=== PATIENT | female | born 1965 | race African-American/Black ===

== ENCOUNTER 2016-05-12 11:24 | Inpatient (IN) | payer OTHER ==
[2016-05-12 11:53] VITALS: BMI 16.9
--- NOTE | 2016-05-12 13:20 | HP ---
CIWA Score - CIWA Score Nausea/Vomitin Muscle Tremors: 3 Anxiety: 3 Agitation: 3 Paroxysmal Sweats: 2 Orientation: 0-Oriented Tacttile Disturbances: 2-Mild Itch/Numbness/Burn Auditory Disturbances: 2-Mild Harshness/Frighten Visual Disturbances: 2-Mild Sensitivity Headache: 2-Mild CIWA-Ar Total Score: 22 Admission ROS [facility] - HPI Chief Complaint: i need help to stop drinking alcohol Allergies/Adverse Reactions: Allergies Allergy/AdvReac Type Severity Reaction Status Date / Time No Known Allergies Allergy Verified 05/12/16 13:18 History of Present Illness: this 51 years old female patient with alcohol dependence,withdrawal symptom, never been in detox before hypertension non compliance nicotine dependence longest period of sobriety 6 months Exam Limitations: No Limitations - Ebola screening Have you traveled outside of the country in the last 21 days: No Have you been sick,other than usual withdrawal symptoms: No - Review of Systems Constitutional: Loss of Appetite, Malaise, Night Sweats, Changes in sleep, Weakness, Unintentional Wgt. Loss EENT: reports: Nose Congestion Respiratory: reports: No Symptoms reported GI: reports: Nausea, Vomiting, Abdominal cramping : reports: No Symptoms Reported Musculoskeletal: reports: Back Pain, Joint Pain, Muscle Pain Integumentary: reports: Dryness Neuro: reports: Headache, Tremors Endocrine: reports: No Symptoms Reported Hematology: reports: No Symptoms Reported Psychiatric: reports: No Sypmtoms Reported Other Systems: Reviewed and Negative Patient History - Patient Medical History Hx Anemia: No Hx Asthma: No Hx Chronic Obstructive Pulmonary Disease (COPD): No Hx Cancer: No Hx Cardiac Disorders: No Hx Congestive Heart Failure: No Hx Hypertension: Yes (non compliance) Hx Hypercholesterolemia: No Hx Pacemaker: No HX Cerebrovascular Accident: No Hx Seizures: No Hx Dementia: No Hx Diabetes: No Hx Gastrointestinal Disorders: No Hx Liver Disease: No Hx Genitourinary Disorders: No Hx Sexually Transmitted Disorders: No Hx Renal Disease (ESRD): No Hx Thyroid Disease: No Hx Human Immunodeficiency Virus (HIV): No (last 2011 negative) Hx Hepatitis C: No Hx Depression: No Hx Suicide Attempt: No Hx Bipolar Disorder: No Hx Schizophrenia: No Other Medical History: no suicidal,no homicidal - Patient Surgical History Hx Abdominal Surgery: Yes (bleeding peptic ulcer ,partial gastrectomy,at age of [age] years old [place] ) - PPD History Previous Implant?: Yes Documented Results: Negative w/o proof Implanted On Prior R Admission?: No PPD to be Administered?: Yes - Reproductive History Patient is a Female of Child Bearing Age (11 -55 yrs old): Yes Patient : No - Smoking Cessation Smoking history: Current every day smoker Have you smoked in the past 12 months: Yes Aproximately how many cigarettes per day: 6 Cigars Per Day: 0 Hx Chewing Tobacco Use: No Initiated information on smoking cessation: Yes 'Breaking Loose' booklet given: 05/12/16 - Substance & Tx. History Hx Alcohol Use: Yes Hx Substance Use: No Substance Use Type: Alcohol - Substances Abused Alcohol Route: Oral Frequency: Daily (1pint of vodka) Amount used: 1 pint of vodka Age of first use: 16 Date of Last Use: 05/11/16 Family Disease History - Family Disease History Family Disease History: Other: Father (alcohol,), Mother (anuerysm, ) Admission Physical Exam S - Vital Signs Vital Signs: Vital Signs - 24 hr 05/12/16 11:42 Temperature 97.4 F L Pulse Rate 126 H Respiratory 20 Rate Blood Pressure 107/74 - Physical General Appearance: Yes: Moderate Distress, Tremorous, Irritable, Sweating, Anxious HEENTM: Yes: Normal ENT Inspection, Pharynx Normal, Nasal Congestion, Rhinorrhea Respiratory: Yes: Lungs Clear, Normal Breath Sounds, No Respiratory Distress Neck: Yes: Within Normal Limits, Trachea in good position Breast: Yes: Breast Exam Deferred Cardiology: Yes: Within Normal Limits, Regular Rhythm, Regular Rate, S1, S2 Abdominal: Yes: Within Normal Limits, Normal Bowel Sounds, Non Tender, Flat, Soft, Surgical Scar Genitourinary: Yes: Within Normal Limits Back: Yes: Muscle Spasm Musculoskeletal: Yes: Back pain, Muscle Pain Extremities: Yes: Within Normal Limits, Normal Range of Motion, Tremors Neurological: Yes: 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, Fully Oriented, Alert, Motor Strength 5/5 Integumentary: Yes: Dry Lymphatic: Yes: Within Normal Limits - Diagnostic (1) Alcohol dependence with uncomplicated withdrawal Current Visit: Yes Status: Acute (2) Essential hypertension affecting Current Visit: Yes Status: Acute (3) Bleeding ulcer Current Visit: Yes Status: Acute (4) History of partial gastrectomy Current Visit: Yes Status: Acute (5) Nicotine dependence Current Visit: Yes Status: Acute Cleared for Admission [facility] - Detox or Rehab [facility] Level of Care: Medically Managed Detox Regimen/Protocol: Librium [facility] Breath Alcohol Content Breath Alcohol Content: 0.107 Urine Drug Screen - Results Drug Screen Negative: Yes
[2016-05-12] MEDS ORDERED: MAGNESIUM HYDROX 2400MG/30ML ORAL SUSPENSION 30 ML CUP PO PRN (13:39)
[2016-05-12] MEDS ORDERED: chlordiazePOXIDE HCL 25 MG CAPSULE PO PRN (13:39)
[2016-05-12] MEDS ORDERED: guaiFENesin/D-METHORPHAN HB 10 ML UNIT-DOSE CUPS PO PRN (13:39)
[2016-05-12] MEDS ORDERED: MAG HYDROX/AL HYDROX/SIMETH 30 ML UNIT-DOSE CUP PO PRN (13:39)
[2016-05-12] MEDS ORDERED: hydrOXYzine PAMOATE 25 MG CAPSULE (FP) PO PRN (13:39)
[2016-05-12] MEDS ORDERED: MAGNESIUM CITRATE 300 ML BOTTLE PO PRN (13:39)
[2016-05-12] MEDS ORDERED: IBUPROFEN 400 MG TABLET (FP) PO PRN (13:39)
[2016-05-12] MEDS ORDERED: ACETAMINOPHEN 325 MG TABLET (FP) PO PRN (13:39)
[2016-05-12] MEDS ORDERED: P-EPHED 60MG/TRIPROLIDI 2.5MG TABLET PO PRN (13:39)
[2016-05-12] MEDS ORDERED: MENTHOL/PHENOL 1 EACH UD MM PRN (13:39)
[2016-05-12] MEDS ORDERED: TRIMETHOBENZAMIDE HCL 200MG/2ML INJ IM PRN (13:42)
[2016-05-12] MEDS ORDERED: chlordiazePOXIDE HCL 25 MG CAPSULE PO ONE (14:23)
[2016-05-12] MEDS ORDERED: PANTOPRAZOLE 40 MG TABLET (FP) PO ONE (14:24)
[2016-05-12] MEDS: NICOTINE 14 MG/24 HOURS TOPICAL PATCH TD SCH (15:16)
--- NOTE | 2016-05-12 15:57 | EKG ---
Test Reason : Blood Pressure : / mmHG Vent. Rate : 122 BPM Atrial Rate : 122 BPM P-R Int : 140 ms QRS Dur : 076 ms QT Int : 342 ms P-R-T Axes : 049 019 038 degrees QTc Int : 487 ms SINUS TACHYCARDIA ANTERIOR INFARCT , AGE UNDETERMINED ABNORMAL ECG NO PREVIOUS ECGS AVAILABLE Confirmed by BONITA HEWITT MD ([id number]) on 05/12/2016 3:57:02 PM Referred By: Confirmed By:BONITA HEWITT MD
[2016-05-12] MEDS: chlordiazePOXIDE HCL 25 MG CAPSULE PO SCH ×2 (17:10→22:20)
[2016-05-12 18:41] LABS: URINE APPEARANCE SLCLOUDY; URINE BLOOD NEGATIVE (NEGATIVE); URINE COLOR AMBER; URINE GLUCOSE (UA) NEGATIVE (NEGATIVE); URINE KETONE TRACE (NEGATIVE); URINE NITRITE NEGATIVE (NEGATIVE); URINE UROBILINOGEN 4.0 E.U/dl E.U./dl (0.2-1.0)
[2016-05-12 18:46] LABS: URINE LEUK ESTERASE 1+ (NEGATIVE); URINE PROTEIN 2+ (NEGATIVE)
[2016-05-12 19:04] LABS: URINE BACTERIA RARE /hpf (NONE SEEN); URINE HYALINE CAST 2 /lpf; URINE MUCUS MANY; URINE RBC 1 /hpf (0-3); URINE WBC 8 /hpf (3-5); YEAST RARE
[2016-05-12] MEDS: THIAMINE HCL 100 MG TABLET (FP) PO SCH (22:20)
[2016-05-13] MEDS: chlordiazePOXIDE HCL 25 MG CAPSULE PO SCH ×4 (06:05→22:27)
[2016-05-13 09:50] LABS: MCH 31.7 pg (25.7-33.7); MCHC 32.9 g/dl (32.0-36.0); MEAN CELL VOLUME 96.5 fl (80-96); MEAN PLT VOLUME 8.6 fl (7.5-11.1); PLATELET COUNT 172 K/MM3 (134-434); RDW 25.2 % (11.6-15.6); WHITE BLOOD COUNT 7.9 K/mm3 (4.0-10.0)
[2016-05-13] MEDS: HYDROCHLOROTHIAZIDE 25 MG TABLET (FP) PO SCH (10:23)
[2016-05-13] MEDS: PRENATAL VITAMINS W/ FOLIC ACID TABLET (FP) PO SCH (10:23)
[2016-05-13] MEDS: NICOTINE 14 MG/24 HOURS TOPICAL PATCH TD SCH (10:23)
[2016-05-13] MEDS: PANTOPRAZOLE 40 MG TABLET (FP) PO SCH (10:23)
[2016-05-13 10:42] LABS: ALK PHOS 423 U/L (45-117); ANION GAP 21 (8-16); BILIRUBIN,TOTAL 1.3 mg/dL (0.2-1.0); CO2 27 mmol/L (21-32); CREATININE 0.6 mg/dL (0.55-1.02); GLUCOSE,RANDOM 101 mg/dL (74-106); SGPT/ALT 57 U/L (12-78); TOT PROT 6.3 g/dl (6.4-8.2)
[2016-05-13 11:00] LABS: SGOT/AST 582 U/L (15-37)
[2016-05-13 11:09] LABS: CALCIUM 6.1 mg/dL (8.5-10.1)
--- NOTE | 2016-05-13 12:10 | PN ---
S CIWA - CIWA Score Nausea/Vomitin Muscle Tremors: 3 Anxiety: 2 Agitation: 2 Paroxysmal Sweats: 3 Orientation: 0-Oriented Tacttile Disturbances: 1-Very Mild Itch/Numbness Auditory Disturbances: 0-None Visual Disturbances: 0-None Headache: 0-None Present CIWA-Ar Total Score: 13 S Progress Note (SOAP) Subjective: interrupted sleep, shakes , sweats, Objective: 05/13/16 12:09 Vital Signs Temperature 97.9 F 05/13/16 10:00 Pulse Rate 117 H 05/13/16 10:00 Respiratory Rate 16 05/13/16 10:00 Blood Pressure 107/85 05/13/16 10:00 O2 Sat by Pulse Oximetry (%) Vital Signs Temperature 97.9 F 05/13/16 10:00 Pulse Rate 117 H 05/13/16 10:00 Respiratory Rate 16 05/13/16 10:00 Blood Pressure 107/85 05/13/16 10:00 O2 Sat by Pulse Oximetry (%) Laboratory Tests 05/12/16 05/13/16 05/13/16 13:00 06:20 06:20 WBC 7.9 RBC 3.38 L Hgb 10.7 Hct 32.7 MCV 96.5 H MCHC 32.9 RDW 25.2 H Plt Count 172 MPV 8.6 Sodium 142 Potassium 2.7 L* Chloride 94 L Carbon Dioxide 27 Anion Gap 21 H BUN 3 L Creatinine 0.6 Creat Clearance w eGFR > 60 Random Glucose 101 Calcium 6.1 L* Total Bilirubin 1.3 H AST 582 H ALT 57 Alkaline Phosphatase 423 H Total Protein 6.3 L Albumin 3.0 L Urine Color [place] Urine Appearance Slcloudy Urine pH 6.0 Ur Specific [place] 1.017 Urine Protein 2+ H Urine Glucose (UA) Negative Urine Ketones Trace H Urine Blood Negative Urine Nitrite Negative Urine Bilirubin 2.0 Urine Urobilinogen 4.0 e.u/dl H Ur Leukocyte Esterase 1+ H Urine RBC 1 Urine WBC 8 Ur Epithelial Cells Moderate Urine Bacteria Rare Hyaline Casts 2 Urine Mucus Many Urine Yeast Rare RPR Titer 05/13/16 06:20 WBC RBC Hgb Hct MCV MCHC RDW Plt Count MPV Sodium Potassium Chloride Carbon Dioxide Anion Gap BUN Creatinine Creat Clearance w eGFR Random Glucose Calcium Total Bilirubin AST ALT Alkaline Phosphatase Total Protein Albumin Urine Color Urine Appearance Urine pH Ur Specific [place] Urine Protein Urine Glucose (UA) Urine Ketones Urine Blood Urine Nitrite Urine Bilirubin Urine Urobilinogen Ur Leukocyte Esterase Urine RBC Urine WBC Ur Epithelial Cells Urine Bacteria Hyaline Casts Urine Mucus Urine Yeast RPR Titer Nonreactive pt lying in bed aox3 in nad Assessment: 05/13/16 12:10 withdrawal sx's hypokalemia hypocalcemia 05/13/16 12:11 Plan: cont. detox increase fluids kcl 40meq q 4h x 3 doses sma7, ca, magnesium
[2016-05-13] MEDS ORDERED: POTASSIUM CHLORIDE ORAL LIQUID 20 MEQ/15 ML PO SCH (12:15)
[2016-05-13] MEDS: POTASSIUM CHLORIDE ORAL LIQUID 20 MEQ/15 ML PO SCH ×3 (13:07→21:46)
[2016-05-13] MEDS: LOPERAMIDE HCL 2 MG CAPSULE PO PRN ×2 (13:09→22:27)
[2016-05-13 15:20] LABS: URINE APPEARANCE CLEAR; URINE BILIRUBIN NEGATIVE (NEGATIVE); URINE BLOOD NEGATIVE (NEGATIVE); URINE COLOR DKYELLOW; URINE GLUCOSE (UA) NEGATIVE (NEGATIVE); URINE KETONE NEGATIVE (NEGATIVE); URINE NITRITE NEGATIVE (NEGATIVE); URINE PROTEIN NEGATIVE (NEGATIVE); URINE UROBILINOGEN 2.0 E.U/dl E.U./dl (0.2-1.0)
[2016-05-13 15:29] LABS: URINE LEUK ESTERASE TRACE (NEGATIVE)
[2016-05-13 16:16] LABS: URINE BACTERIA RARE /hpf (NONE SEEN); URINE RBC <1 /hpf (0-3); URINE WBC 2 /hpf (3-5)
[2016-05-13] MEDS: diphenhydrAMINE HCL 50 MG CAPSULE PO PRN (22:25)
[2016-05-13] MEDS: THIAMINE HCL 100 MG TABLET (FP) PO SCH (22:25)
[2016-05-14] MEDS: diphenhydrAMINE HCL 50 MG CAPSULE PO PRN ×2 (01:57→22:26)
[2016-05-14] MEDS: chlordiazePOXIDE HCL 25 MG CAPSULE PO SCH ×2 (05:24→10:21)
--- NOTE | 2016-05-14 09:41 | PN ---
[facility] CIWA - CIWA Score Nausea/Vomitin-No Nausea/No Vomiting Muscle Tremors: 4-Moderate,w/Arms Extend Anxiety: 2 Agitation: 3 Paroxysmal Sweats: 3 Orientation: 0-Oriented Tacttile Disturbances: 0-None Auditory Disturbances: 0-None Visual Disturbances: 0-None Headache: 0-None Present CIWA-Ar Total Score: 12 S Progress Note (SOAP) Subjective: chills sweats interrupted sleep agitation Objective: 05/14/16 09:40 Vital Signs Temperature 98.2 F 05/14/16 06:50 Pulse Rate 103 H 05/14/16 06:50 Respiratory Rate 20 05/14/16 06:50 Blood Pressure 111/79 05/14/16 06:50 O2 Sat by Pulse Oximetry (%) Laboratory Tests 05/12/16 05/13/16 05/13/16 13:00 06:20 06:20 WBC 7.9 RBC 3.38 L Hgb 10.7 Hct 32.7 MCV 96.5 H MCHC 32.9 RDW 25.2 H Plt Count 172 MPV 8.6 Sodium 142 Potassium 2.7 L* Chloride 94 L Carbon Dioxide 27 Anion Gap 21 H BUN 3 L Creatinine 0.6 Creat Clearance w eGFR > 60 Random Glucose 101 Calcium 6.1 L* Total Bilirubin 1.3 H AST 582 H ALT 57 Alkaline Phosphatase 423 H Total Protein 6.3 L Albumin 3.0 L Urine Color Josefa Urine Appearance Slcloudy Urine pH 6.0 Ur Specific [place] 1.017 Urine Protein 2+ H Urine Glucose (UA) Negative Urine Ketones Trace H Urine Blood Negative Urine Nitrite Negative Urine Bilirubin 2.0 Urine Urobilinogen 4.0 e.u/dl H Ur Leukocyte Esterase 1+ H Urine RBC 1 Urine WBC 8 Ur Epithelial Cells Moderate Urine Bacteria Rare Hyaline Casts 2 Urine Mucus Many Urine Yeast Rare RPR Titer 05/13/16 05/13/16 06:20 11:00 WBC RBC Hgb Hct MCV MCHC RDW Plt Count MPV Sodium Potassium Chloride Carbon Dioxide Anion Gap BUN Creatinine Creat Clearance w eGFR Random Glucose Calcium Total Bilirubin AST ALT Alkaline Phosphatase Total Protein Albumin Urine Color Dkyellow Urine Appearance Clear Urine pH 7.0 Ur Specific [place] 1.008 Urine Protein Negative Urine Glucose (UA) Negative Urine Ketones Negative Urine Blood Negative Urine Nitrite Negative Urine Bilirubin Negative Urine Urobilinogen 2.0 e.u/dl H Ur Leukocyte Esterase Trace H D Urine RBC <1 Urine WBC 2 Ur Epithelial Cells Rare Urine Bacteria Rare Hyaline Casts Urine Mucus Urine Yeast RPR Titer Nonreactive repeated labs pending awake/alert ambulating no acute distress Assessment: 05/14/16 09:41 withdrawal sx Plan: continue detox increase fluids f/u pending labs
[2016-05-14] MEDS: HYDROCHLOROTHIAZIDE 25 MG TABLET (FP) PO SCH (10:21)
[2016-05-14] MEDS: PRENATAL VITAMINS W/ FOLIC ACID TABLET (FP) PO SCH (10:21)
[2016-05-14] MEDS: PANTOPRAZOLE 40 MG TABLET (FP) PO SCH (10:21)
[2016-05-14] MEDS: NICOTINE 14 MG/24 HOURS TOPICAL PATCH TD SCH (10:22)
[2016-05-14 11:02] LABS: CREATININE 0.7 mg/dL (0.55-1.02)
[2016-05-14 11:15] LABS: MAGNESIUM 0.5 mg/dL (1.8-2.4)
[2016-05-14] MEDS ORDERED: MAGNESIUM OXIDE 400 MG TABLET (FP) PO ONE (11:26)
[2016-05-14] MEDS: POTASSIUM CHLORIDE TABS 20 MEQ TABLET.ER (FP) PO SCH (12:13)
[2016-05-14] MEDS ORDERED: cloNIDine HCL 0.1 MG TABLET PO ONE (13:45)
[2016-05-14] MEDS: LISINOPRIL 5 MG TABLET (FP) PO SCH (14:48)
[2016-05-14] MEDS: chlordiazePOXIDE 5 MG CAPSULE PO SCH ×2 (17:25→22:25)
[2016-05-14] MEDS: THIAMINE HCL 100 MG TABLET (FP) PO SCH (22:25)
[2016-05-14] MEDS: MAGNESIUM OXIDE 400 MG TABLET (FP) PO SCH (22:25)
[2016-05-15] MEDS: chlordiazePOXIDE 5 MG CAPSULE PO SCH ×2 (05:40→10:48)
[2016-05-15] MEDS ORDERED: MAGNESIUM OXIDE 400 MG TABLET (FP) PO SCH (10:00)
--- NOTE | 2016-05-15 10:13 | PN ---
[facility] Progress Note (SOAP) Subjective: feeling better little sweats chills Objective: 05/15/16 10:12 Vital Signs Temperature 97.9 F 05/15/16 06:00 Pulse Rate 114 H 05/15/16 06:00 Respiratory Rate 16 05/15/16 06:00 Blood Pressure 128/85 05/15/16 06:00 O2 Sat by Pulse Oximetry (%) Laboratory Tests 05/12/16 05/13/16 05/13/16 13:00 06:20 06:20 WBC 7.9 RBC 3.38 L Hgb 10.7 Hct 32.7 MCV 96.5 H MCHC 32.9 RDW 25.2 H Plt Count 172 MPV 8.6 Sodium 142 Potassium 2.7 L* Chloride 94 L Carbon Dioxide 27 Anion Gap 21 H BUN 3 L Creatinine 0.6 Creat Clearance w eGFR > 60 Random Glucose 101 Calcium 6.1 L* Magnesium Total Bilirubin 1.3 H AST 582 H ALT 57 Alkaline Phosphatase 423 H Total Protein 6.3 L Albumin 3.0 L Urine Color [place] Urine Appearance Slcloudy Urine pH 6.0 Ur Specific [place] 1.017 Urine Protein 2+ H Urine Glucose (UA) Negative Urine Ketones Trace H Urine Blood Negative Urine Nitrite Negative Urine Bilirubin 2.0 Urine Urobilinogen 4.0 e.u/dl H Ur Leukocyte Esterase 1+ H Urine RBC 1 Urine WBC 8 Ur Epithelial Cells Moderate Urine Bacteria Rare Hyaline Casts 2 Urine Mucus Many Urine Yeast Rare RPR Titer 05/13/16 05/13/16 05/14/16 06:20 11:00 07:00 WBC RBC Hgb Hct MCV MCHC RDW Plt Count MPV Sodium 146 H Potassium 3.1 L Chloride 105 D Carbon Dioxide 28 Anion Gap 13 BUN 5 L D Creatinine 0.7 Creat Clearance w eGFR Random Glucose 133 H D Calcium 7.0 L Magnesium 0.5 L* Total Bilirubin AST ALT Alkaline Phosphatase Total Protein Albumin Urine Color Dkyellow Urine Appearance Clear Urine pH 7.0 Ur Specific [place] 1.008 Urine Protein Negative Urine Glucose (UA) Negative Urine Ketones Negative Urine Blood Negative Urine Nitrite Negative Urine Bilirubin Negative Urine Urobilinogen 2.0 e.u/dl H Ur Leukocyte Esterase Trace H D Urine RBC <1 Urine WBC 2 Ur Epithelial Cells Rare Urine Bacteria Rare Hyaline Casts Urine Mucus Urine Yeast RPR Titer Nonreactive repeated labs pending awake/alert ambulating no acute distress Assessment: 05/15/16 10:13 withdrawal sx Plan: continue detox increase fluids f/u pending labs
[2016-05-15] MEDS: PRENATAL VITAMINS W/ FOLIC ACID TABLET (FP) PO SCH (10:48)
[2016-05-15] MEDS: LISINOPRIL 5 MG TABLET (FP) PO SCH (10:48)
[2016-05-15] MEDS: MAGNESIUM OXIDE 400 MG TABLET (FP) PO SCH ×2 (10:48→22:07)
[2016-05-15] MEDS: PANTOPRAZOLE 40 MG TABLET (FP) PO SCH (10:48)
[2016-05-15] MEDS: amLODIPine BESYLATE 10 MG TABLET (FP) PO SCH (10:48)
[2016-05-15] MEDS: POTASSIUM CHLORIDE TABS 20 MEQ TABLET.ER (FP) PO SCH (10:48)
[2016-05-15] MEDS: NICOTINE 14 MG/24 HOURS TOPICAL PATCH TD SCH (10:50)
[2016-05-15 12:03] LABS: ALBUMIN 2.5 g/dl (3.4-5.0); ALK PHOS 412 U/L (45-117); ANION GAP 13 (8-16); BILIRUBIN,TOTAL 0.7 mg/dL (0.2-1.0); CALCIUM 7.3 mg/dL (8.5-10.1); CO2 32 mmol/L (21-32); CREATININE 0.5 mg/dL (0.55-1.02); GLUCOSE,RANDOM 94 mg/dL (74-106); SGPT/ALT 65 U/L (12-78); TOT PROT 5.4 g/dl (6.4-8.2)
[2016-05-15 12:12] LABS: SGOT/AST 444 U/L (15-37)
[2016-05-15 12:14] LABS: MAGNESIUM 0.6 mg/dL (1.8-2.4)
--- NOTE | 2016-05-15 14:48 | PN ---
[facility] Progress Note Note: potassium lab report came back with a result of 2.8; kcl 40meq ordered will repeat labs. d/c plan is pending and will reassess lab result.
[2016-05-15] MEDS ORDERED: POTASSIUM CHLORIDE ORAL LIQUID 20 MEQ/15 ML PO ONE (15:15)
[2016-05-15] MEDS: chlordiazePOXIDE HCL 10 MG CAPSULE PO SCH ×2 (17:07→22:07)
--- NOTE | 2016-05-15 17:36 | PN ---
[facility] Progress Note Note: patient feel better,no nausea,no vomiting patient is asymptomatic no chest pain,no sob,no dizziness ekg showed sinus tachycardia rate 110 bp 113/62,p112,r20,t 99.5 lung clear surgical scar in epigastrium no pain and tenderness bowel sound active no calf tenderness treatment continue k uri 40meq po bid nutritional support repeat cmp in am close monitoring
[2016-05-15] MEDS ORDERED: POTASSIUM CHLORIDE ORAL LIQUID 20 MEQ/15 ML PO SCH (22:00)
[2016-05-15] MEDS: THIAMINE HCL 100 MG TABLET (FP) PO SCH (22:07)
[2016-05-15] MEDS: diphenhydrAMINE HCL 50 MG CAPSULE PO PRN (22:10)
[2016-05-16] MEDS: chlordiazePOXIDE HCL 10 MG CAPSULE PO SCH (06:05)
[2016-05-16 06:28] VITALS: PULSE 110
--- NOTE | 2016-05-16 09:12 | PN ---
[facility] Progress Note (SOAP) Subjective: ALERT,NO COMPLAINT,STATED FEELING MUCH BETTER Objective: 05/16/16 09:10 Vital Signs Temperature 97.7 F 05/16/16 06:28 Pulse Rate 110 H 05/16/16 06:28 Respiratory Rate 20 05/16/16 06:28 Blood Pressure 146/94 05/16/16 06:28 O2 Sat by Pulse Oximetry (%) 05/16/16 10:04 Assessment: 05/16/16 09:11 DETOX COMPLETED,NO WITHDRAWAL SYMPTOM 05/16/16 10:04 Plan: PATIENT MO LIKE TO GO HOME NOW ,DID NOT WANT TO WAIT FOR TODAY LABS RESULT, DISCUSSED WITH PATIENT EXTENSIVELY CONCERNING HYPOKALEMIA,HYPOCALCEMIA, HYPOMAGNESEMIA,TRASAMINASEMIA,PATIENT DID NOT WANT ANY REPLACEMENT AND SUPPLIMENT TO START NOW,SHE WILL GO TO SEE DR LAWRENCE HER PMD ON Wed05/18/16
--- NOTE | 2016-05-16 09:18 | DS ---
[facility] Detox Discharge Summary Admission Date: 05/12/16 Discharge Date: 05/16/16 - History Present History: Alcohol Dependence Additional Comments: FOLLOW UP WITH AFTER CARE PROGRAM ARRANGEMENT ,DISCUSSED WITH PATIENT EXTENSIVELY ABOUT THE NEED OF EVALUATION AND TREATMENT FOR HYPOKALEMIA,HYPOCALCEMIA,HYPOMAGNESEMIA,PATIENT DID NOT WANT ANYTHING TO BE DONE NOW AND SUPPLIMENT,SHE WILL TO TO SEE HER PMD DR LAWRENCE ON Wednesday05/18/16 Pertinent Past History: HYPERTENSION HISTORY OF BLEEDING ULCER HISTORY OF SURGERY FOR BLEEDING ULCER GASTRECTOMY - Physical Exam Results Vital Signs: Vital Signs Temperature 97.7 F 05/16/16 06:28 Pulse Rate 110 H 05/16/16 06:28 Respiratory Rate 20 05/16/16 06:28 Blood Pressure 146/94 05/16/16 06:28 O2 Sat by Pulse Oximetry (%) Pertinent Admission Physical Exam Findings: WITHDRAWAL SYMPTOM - Treatment Hospital Course: Detox Protocol Followed, Detoxed Safely, Responded well, Discharged Condition Good Patient has Accepted a Rehab Referral to: [facility] - Medication Discharge Medications: Ambulatory Orders Esomeprazole Magnesium 40 mg PO DAILY 05/12/16 Hydrochlorothiazide [Hctz -] 25 mg PO DAILY 05/12/16 - Diagnosis (1) Alcohol dependence with uncomplicated withdrawal Current Visit: Yes Status: Acute (2) Essential hypertension affecting Current Visit: Yes Status: Acute (3) Bleeding ulcer Current Visit: Yes Status: Acute (4) History of partial gastrectomy Current Visit: Yes Status: Acute (5) Nicotine dependence Current Visit: Yes Status: Acute (6) Essential hypertension Current Visit: Yes Status: Acute (7) Hypokalemia Current Visit: Yes Status: Acute (8) Hypocalcemia Current Visit: Yes Status: Acute (9) Hypomagnesemia Current Visit: Yes Status: Acute (10) Transaminasemia Current Visit: Yes Status: Acute - AMA Did Patient Leave Against Medical Advice: No
[2016-05-16 10:00] VITALS: BP 101/77; TEMP 99.9
[2016-05-16] MEDS ORDERED: POTASSIUM CHLORIDE TABS 20 MEQ TABLET.ER (FP) PO SCH (10:00)
[2016-05-16] MEDS: amLODIPine BESYLATE 10 MG TABLET (FP) PO SCH (10:05)
[2016-05-16] MEDS: MAGNESIUM OXIDE 400 MG TABLET (FP) PO SCH (10:05)
[2016-05-16] MEDS: PRENATAL VITAMINS W/ FOLIC ACID TABLET (FP) PO SCH (10:05)
[2016-05-16] MEDS: PANTOPRAZOLE 40 MG TABLET (FP) PO SCH (10:05)
[2016-05-16] MEDS: LISINOPRIL 5 MG TABLET (FP) PO SCH (10:05)
[2016-05-16] MEDS: NICOTINE 14 MG/24 HOURS TOPICAL PATCH TD SCH (10:06)
[2016-05-16 11:04] LABS: ALBUMIN 2.4 g/dl (3.4-5.0); ALK PHOS 404 U/L (45-117); ANION GAP 12 (8-16); BILIRUBIN,TOTAL 0.6 mg/dL (0.2-1.0); CALCIUM 7.1 mg/dL (8.5-10.1); CO2 33 mmol/L (21-32); CREATININE 0.5 mg/dL (0.55-1.02); GLUCOSE,RANDOM 79 mg/dL (74-106); SGPT/ALT 75 U/L (12-78); TOT PROT 5.4 g/dl (6.4-8.2)
[2016-05-16 11:41] LABS: SGOT/AST 431 U/L (15-37)
--- NOTE | 2016-05-19 23:09 | EKG ---
Test Reason : Blood Pressure : / mmHG Vent. Rate : 109 BPM Atrial Rate : 109 BPM P-R Int : 150 ms QRS Dur : 080 ms QT Int : 338 ms P-R-T Axes : 038 027 058 degrees QTc Int : 455 ms SINUS TACHYCARDIA POSSIBLE ANTERIOR INFARCT (CITED ON OR BEFORE 12-MAY-2016) ABNORMAL ECG WHEN COMPARED WITH ECG OF 12-MAY-2016 14:02, NO SIGNIFICANT CHANGE WAS FOUND Confirmed by NORA ENRIQUE, MONTSERRAT ([id number]) on 05/19/2016 11:08:59 PM Referred By: Confirmed By:MONTSERRAT MELENDEZ MD
== END 2016-05-16 10:12 | disposition home or self-care (01) | DRG 896 ==
LOC: EDBD → YASAS 11:24 → Y6N 13:40
PROVIDERS: ADMIT Internal Medicine; ATTEND Internal Medicine
PROC: HZ2ZZZZ Detoxification Services for Substance Abuse Treatment (ICD-10-PCS; principal; 2016-05-16)
DX: F10.230 Alcohol dependence with withdrawal, uncomplicated (principal); K25.4 Chronic or unspecified gastric ulcer with hemorrhage; F17.210 Nicotine dependence, cigarettes, uncomplicated; I10 Essential (primary) hypertension; E87.6 Hypokalemia; E83.51 Hypocalcemia; E83.42 Hypomagnesemia; R74.0 Nonspecific elevation of levels of transaminase and lactic acid dehydrogenase [LDH]; Z90.3 Acquired absence of stomach [part of]
CPT/HCPCS: 36415; 80048; 80053; 81003; 81015; 83735; 85027; 86593; 93005; 93010